=== PATIENT | female | born 1990 | race African-American/Black ===

== ENCOUNTER 2016-10-06 08:28 | Day surgery (SDC) | payer OTHER ==
--- OUTSIDE RECORDS SUMMARY | 2016-10-06 08:32 | XMS REPORT | Continuity of Care Document ---
:1990 Author Organization [facility] ([facility]) Address [address] [place] [address] Phone [phone] Care Team Providers Name Role Phone Marcus Zheng Primary Care Provider [phone] Source Comments This disclosure is being made pursuant to the Care Everywhere program, applicable federal and state laws, and may not contain all informaitonavailable regarding this patient.[facility] ([facility]) Active Allergies and Adverse Reactions No Known Allergies Current Medications No known medications Active Problems Problem Noted Date 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
--- OUTSIDE RECORDS SUMMARY | 2016-10-06 08:32 | XMS REPORT | Continuity of Care Document ---
:1990 Author Organization [facility] [place] [address] Care Team Providers Name Role Phone Marcus Zheng Primary Care Provider [phone] Source Comments This disclosure is being made pursuant to the [employer] program and contain all information available regarding this patient.[facility] Active Allergies and Adverse Reactions No Known Allergies Current Medications Be aware that medications may not be up to date as of this document. Alwaysverify current medications with the patient. Not on file Active Problems Not on file Most Recent Encounters Date Type Specialty Providers Description 09/09/2016 Orders Only Provider, Not In System 08/04/2016 Orders Only Family Medicine Marcus Zheng MD Leg pain, left 08/02/2016 Office Visit Family Marcus Mclean MD Leg pain, left (Primary Dx) Social History Tobacco Use Types Packs/Day Years Used Date Current Every Day Smoker Smokeless Tobacco: Never Used Alcohol Use Drinks/Week oz/Week Comments No Last Filed Vital Signs Vital Sign Reading Time Taken Blood Pressure 120/72 08/02/2016 4:00 PM DRUG DISCOVERY INFORMATICS SPECIALIST Pulse 82 08/02/2016 4:00 PM DRUG DISCOVERY INFORMATICS SPECIALIST Temperature 36.7 C (98 F) 08/02/2016 4:00 PM DRUG DISCOVERY INFORMATICS SPECIALIST Respiratory Rate 16 08/02/2016 4:00 PM DRUG DISCOVERY INFORMATICS SPECIALIST Height 1.638 m (5' 4.5") 08/02/2016 4:00 PM DRUG DISCOVERY INFORMATICS SPECIALIST Weight 77.293 kg (170 lb 6.4 oz) 08/02/2016 4:00 PM DRUG DISCOVERY INFORMATICS SPECIALIST Body Mass Index 28.81 08/02/2016 4:00 PM DRUG DISCOVERY INFORMATICS SPECIALIST Oxygen Saturation 96% 08/02/2016 4:00 PM DRUG DISCOVERY INFORMATICS SPECIALIST Plan of Care Health Maintenance Due Date Last Done Comments HPV Vaccine (9-26YO) (1 of 3 - Female 3 Dose Series) 12/26/2002 Chlamydia Screening 2007 Pneumococcal Medium Risk 19-64 yo (1 of 1 - PPSV23) 12/26/2010 Tetanus/Pertussis (1 - Tdap) 12/26/2010 Pap Smear 12/26/2012 Influenza Immunization (#1) 2016 Results from Last 3 Months US OB GREATER THAN 14 WKS COMPLETE SINGLE FETUS (08/31/2016)US DUPLEX EXTREMITY VEINS BILAT (08/03/2016)
[2016-10-06] MEDS ORDERED: TERBUTALINE SULFATE 1 MG/ML VIAL SC ONE (09:24)
[2016-10-06] MEDS ORDERED: DEXTROSE 5%-LACTATED RINGERS 1,000 ML IV PRN ×2 (09:25→09:48)
[2016-10-06] MEDS ORDERED: RINGERS SOLUTION,LACTATED 1,000 ML IV ONE (09:47)
--- NOTE | 2016-10-06 10:16 | OR ---
Operative Report - Dictated Report Narrative: External Cephalic Version Indication: breech at 37 2/7 weeks Blood type: O positive Procedure: Patient counselled and signed consent for the cephalic version. Risks, benefits and alternatives had discussed with patient. NST was reactive (140s with accels ) prior to the procedure without uterine contractions. Patient emptied her bladder prior to the procedure. One dose of terbutaline 0.25 mg was given subQ prior to the procedure. Bedside ultrasound was performed and confirmed wilma breech with head in the RUQ and spine to the patient's left and placenta at the right lateral position. The abdomen was applied copious amount of ultrasound gel and the buttock was elevated and pushed up toward the maternal left upper quadrant with my right hand and simultaneously the head was guided down with my left hand along the maternal right side to the lower quadrant. heart rate was monitored during the procedure. The cephalic turn was very smooth and took about 50-60 seconds. At the completion of the cephalic version, heart rate was in the 150s. Patient tolerated the procedure well. She did not have much pain or discomfort during the procedure. About 5 minutes later, her blood pressure dropped down to 72/41 and heart rate deceleration was noted from 150s down to 80 for one minute. She was lying flat on her back at the time. She was repositioned to the left lateral. LR bolus was given by iv drip at rate of 999 ml/h. BP gradually returned normal and heart rate returned to baseline of 150s. This hypotensive episode was thought due to her lying flat on her back causing the decreased venous blood return from the vena cava to the heart. She was monitored for 2 hours post procedure. heart rate returned to normal with reactive tracing (150s with accels and no decels). There was no uterine contractions. The patient did not have any discomfort and was discharged home in stable conditions. Return precautions were given to patient. Dr. Ron was present to supervise the external cephalic version. Earl Paez MD
== END 2016-10-06 08:29 | disposition home or self-care (01) ==
LOC: AMB 08:28 → OBCLINIC 08:28
PROVIDERS: ATTEND Obstetrics & Gynecology
PROC: 10S0XZZ Reposition Products of Conception, External Approach (ICD-10-PCS; principal; 2016-10-06)
DX: O32.1XX0 Maternal care for breech presentation, not applicable or unspecified (principal); Z3A.37 37 weeks gestation of pregnancy

== ENCOUNTER 2016-10-23 14:54 | Inpatient (IN) | payer OTHER ==
--- OUTSIDE RECORDS SUMMARY | 2016-10-23 14:58 | XMS REPORT | Continuity of Care Document ---
:1990 Author Organization [facility] [place] [address] Care Team Providers Name Role Phone Marcus Zheng Primary Care Provider [phone] Source Comments This disclosure is being made pursuant to the [employer] program and contain all information available regarding this patient.[facility] Active Allergies and Adverse Reactions No Known [...] Taken Blood Pressure 120/72 08/02/2016 4:00 PM DIRECTOR ON AIR Pulse 82 08/02/2016 4:00 PM DIRECTOR ON AIR Temperature 36.7 C (98 F) 08/02/2016 4:00 PM DIRECTOR ON AIR Respiratory Rate 16 08/02/2016 4:00 PM DIRECTOR ON AIR Height 1.638 m (5' 4.5") 08/02/2016 4:00 PM DIRECTOR ON AIR Weight 77.293 kg (170 lb 6.4 oz) 08/02/2016 4:00 PM DIRECTOR ON AIR Body Mass Index 28.81 08/02/2016 4:00 PM DIRECTOR ON AIR Oxygen Saturation 96% 08/02/2016 4:00 PM DIRECTOR ON AIR Plan of Care Health Maintenance Due Date [...]
--- OUTSIDE RECORDS SUMMARY | 2016-10-23 14:59 | XMS REPORT | Continuity of Care Document ---
:1990 Author Organization [facility] ([facility]) Address [address] [place] [address] Phone [phone] Care Team Providers Name Role Phone Marcus Zheng Primary Care Provider [phone] Source Comments This disclosure is being made pursuant to the Care Everywhere program, applicable federal and state laws, and may not contain all informaitonavailable regarding this patient.[facility] ([facility]) Active Allergies and Adverse Reactions No Known [...]
[2016-10-23] MEDS ORDERED: RINGERS SOLUTION,LACTATED 1,000 ML IV ONE (19:01)
[2016-10-23] MEDS ORDERED: LIDOCAINE HCL 50 ML VIAL PERI PRN (19:01)
[2016-10-23] MEDS ORDERED: OXYTOCIN/DEXTROSE 5%-WATER 30 UNITS/500 ML BAG IV ONE (19:01)
[2016-10-23] MEDS ORDERED: ONDANSETRON HCL/PF 2 MG/ML VIAL IV PRN ×2 (19:01→19:12)
--- NOTE | 2016-10-23 19:01 | PN ---
Progess Note - Interim Narrative: 10/23/16 18:54 Patient uncomfortable with contractions, requesting epidural Vital signs stable. Temp 37.8 Celsius FHT:150 baseline, reassuring Contractions q 2-3 min Cervix: 5/80/-2, SROM at 0930-clear Impression: Intrauterine at 39-5/7 weeks in labor Plan: Fluid bolus started for epidural.
[2016-10-23] MEDS ORDERED: BUPIVACAINE HCL/0.9 % NACL/PF 250 ML EP PRN (19:12)
[2016-10-23] MEDS ORDERED: fentaNYL CITRATE/PF 50 MCG/ML AMPUL IT SCH (19:15)
--- NOTE | 2016-10-23 19:17 | OR ---
Anesthesia Pre Procedure Eval Date of Service: 10/23/16 Pre Procedure Evaluation: Anesthesia Pre Procedure Evaluation Heart Rate:92 Blood Pressure:134/89 Termperature:37 Respiratory Rate:20 SaO2:99 DATE: 10/23/2016 TIME: 1914 INDICATIONS: Active labor, labor pain PAST MEDICAL HISTORY: Primipara patient in active labor, had attempted to labor without epidural however after membranes ruptured is now requesting labor analgesia EXAM: Heart regular; lungs clear ASSESSMENT OF MEDICAL STATUS: Appropriate candidate for labor analgesia PLANNED PROCEDURE: Emanation spinal epidural for labor analgesia Home Medications: HOME MEDICATIONS Acetaminophen [Tylenol] 650 mg PO DAILY 10/23/16 [Last Taken 10/22/16 22:00] Ascorbic Acid [Vitamin C] 500 mg PO DAILY 10/23/16 [Last Taken 10/23/16 11:00] Ferrous Sulfate 325 mg PO DAILY 10/23/16 [Last Taken Unknown] Vit#96/Ferrous Fum/FA [ S] 1 tab PO DAILY 10/23/16 [Last Taken 10/22/16 22:00]
--- NOTE | 2016-10-23 19:39 | OR ---
Anesthesia Procedure Note - Anesthesia Procedure Note Date of Service: 10/23/16 Narrative: 10/23/16 19:37 ANESTHESIA PROCEDURE NOTE Date of Procedure: 10/23/2016 Time of procedure: 1919. Performed by: MARGE Lucio CRNA, MSN Bakery Technician: Umu Martin RN. Preprocedure diagnosis: Active labor, labor pain. Post procedure diagnosis: Same. Procedure: Labor Epidural Placement L3 4. Indications: Labor pain. Findings: See below. Details of the procedure: The patient was placed on the side of the bed in sitting position. The patient was prepped with DuraPrep and draped in a sterile fashion. Lidocaine 1% was infiltrated to the skin and subcutaneous tissues at the level of the L3 4 interspace. The epidural space was identified using a 18-gauge Tuohy needle with [id number] technique. Fentanyl 20 g was given intrathecally the intrathecal needle was then removed and the epidural catheter was threaded approximately 4 cm, the epidural needle was then removed, and after careful aspiration 3 mL of 1.5% lidocaine with 1-200,000 epinephrine was injected without change in maternal heart rate or sensorium. The catheter was then taped in place. EBL: Minimal. Fluids: N/A. Specimen: N/A. Post procedure condition: The patient tolerated the procedure well with good relief. No complications were noted. Thank you for this consultation. Ajay Driscoll CRNA, ARNP, MSN
[2016-10-23] MEDS: DEXTROSE 5%-LACTATED RINGERS 1,000 ML IV PRN ×2 (19:50→23:38)
[2016-10-23] MEDS ORDERED: ceFAZolin SODIUM/DEXTROSE,ISO 2 GM/50 ML BAG IV SCH (23:15)
[2016-10-24] MEDS ORDERED: ACETAMINOPHEN 500 MG TABLET PO STA (04:05)
[2016-10-24] MEDS: DEXTROSE 5%-LACTATED RINGERS 1,000 ML IV PRN (04:10)
--- NOTE | 2016-10-24 04:45 | PN ---
Progess Note - Interim Narrative: 10/24/16 04:40 Patient progressed to complete dilation/-1 station at 0240 Blood pressure is within normal limits temperature 39C Status post 2 g Ancef at 2340 10/23/2016 heart tones 160 baseline with moderate beat to beat variability and occasional variable deceleration Pitocin at 2 mU/m Contractions every 2-3 minutes Impression: 39-6/7 week intrauterine , protracted labor, maternal fever - probable chorioamnionitis Plan: Continue attempt at vaginal delivery, if unsuccessful will proceed with section.
--- NOTE | 2016-10-24 08:35 | OR ---
Operative Report - Dictated Report Narrative: Spontaneous vaginal delivery of viable female at 0758 on 10/24/2016 with Apgars 8 and 8, weighing 3585 g in [id number] position with compound left hand presentation and nuchal cord 2. Cord clamping delayed approximately 1 minute Placenta delivered complete, intact, with three vessel cord Estimated blood loss: 300 mL due to uterine atony which responded to 30 milliunits of Pitocin intravenously and 400 g of Cytotec rectally Lacerations: Bilateral first-degree labial laceration with repair of left laceration and left vaginal sidewall using 4-0 Vicryl Rapide due to small bleeders History for MU Definition: * The number of deliveries resulting in a live the patient experienced prior to current hospitalization * The previous delivery of live twins or any live multiple gestation is considered one live event. *If primagravida or nulliparous is documented select zero for the number of previous live births. Live Events: 0
[2016-10-24] MEDS ORDERED: OXYTOCIN/DEXTROSE 5%-WATER 30 UNITS/500 ML BAG IV ONE (09:04)
[2016-10-24] MEDS ORDERED: oxyCODONE HCL/ACETAMINOPHEN 1 TAB TABLET PO PRN ×2 (09:04)
[2016-10-24] MEDS ORDERED: GLYCERIN/WITCH HAZEL LEAF 40 APPL BOX TP PRN (09:04)
[2016-10-24] MEDS ORDERED: MISOPROSTOL 200 MCG TABLET RC SCH (09:04)
[2016-10-24] MEDS ORDERED: HYDROCORTISONE 30 APPL TUBE TP PRN (09:04)
[2016-10-24] MEDS ORDERED: SENNOSIDES 8.6 MG TABLET PO PRN (09:04)
[2016-10-24] MEDS ORDERED: BENZOCAINE/MENTHOL 81 SPRAY CAN TP PRN (09:04)
[2016-10-24] MEDS ORDERED: BISACODYL 10 MG SUPP.RECT RC PRN (09:04)
[2016-10-24] MEDS: IBUPROFEN 800 MG TABLET PO PRN ×2 (10:20→17:17)
[2016-10-24] MEDS: DOCUSATE SODIUM 100 MG CAPSULE PO SCH ×2 (10:20→21:16)
[2016-10-25] MEDS: IBUPROFEN 800 MG TABLET PO PRN ×3 (00:18→18:49)
[2016-10-25] MEDS: DOCUSATE SODIUM 100 MG CAPSULE PO SCH ×2 (08:39→20:16)
[2016-10-25] MEDS: FERROUS SULFATE 325 MG TABLET PO SCH (08:39)
[2016-10-25] MEDS: PRENATAL VIT#96/FERROUS FUM/FA 1 TAB TABLET PO SCH (08:40)
[2016-10-25] MEDS: ASCORBIC ACID 500 MG TABLET PO SCH (08:40)
--- NOTE | 2016-10-25 17:07 | PN ---
Subjective - Date and Time Seen Date: 10/25/16 Time: 17:07 Objective - Vitals Vitals: Last Vital Signs Temp 36.6 C 10/25/16 13:48 Pulse 86 10/25/16 13:48 Resp 18 10/25/16 13:48 BP 131/82 10/25/16 13:48 Pulse Ox 97 10/25/16 13:48 Patient denies complaints. Lochia wnl Abdomen - soft, nontender Uterus - firm, at umbilicus - 1 No calf tenderness Impression: day #1 - s/p spontaneous vaginal delivery. Plan: Continue routine care Cauti Physician Documentation - Urinary Catheter Management Urethral (Campos) Date of Insertion: 10/23/16 Time of Insertion: 20:10
[2016-10-26] MEDS: IBUPROFEN 800 MG TABLET PO PRN (01:30)
[2016-10-26] MEDS ORDERED: MISOPROSTOL 200 MCG TABLET RC PRN (06:48)
--- NOTE | 2016-10-26 09:20 | PN ---
Subjective - Date and Time Seen Date: 10/26/16 Time: 09:20 Objective - Vitals Vitals: Last Vital Signs Temp 36.8 C 10/26/16 07:05 Pulse 78 10/26/16 07:05 Resp 20 10/26/16 07:05 BP 129/93 10/26/16 07:05 Pulse Ox 97 10/26/16 07:05 Patient denies complaints. Lochia wnl Abdomen - soft, nontender Uterus - firm, at umbilicus - 2 No calf tenderness Impression: day #2 - s/p spontaneous vaginal delivery. Plan: Routine discharge instructions. Follow-up in the office in 2 weeks for blood pressure check. Cauti Physician Documentation - Urinary Catheter Management Urethral (Campos) Date of Insertion: 10/23/16 Time of Insertion: 20:10
[2016-10-26] MEDS: PRENATAL VIT#96/FERROUS FUM/FA 1 TAB TABLET PO SCH (10:19)
[2016-10-26] MEDS: ASCORBIC ACID 500 MG TABLET PO SCH (10:20)
[2016-10-26] MEDS: FERROUS SULFATE 325 MG TABLET PO SCH (10:20)
[2016-10-26] MEDS: DOCUSATE SODIUM 100 MG CAPSULE PO SCH (10:20)
[2016-10-26 19:40] VITALS: BP 130/90
== END 2016-10-26 18:30 | disposition home or self-care (01) | DRG 774 ==
LOC: OB 14:54 → MS 10-26 17:05
PROVIDERS: ADMIT Obstetrics & Gynecology; ATTEND Obstetrics & Gynecology
PROC: 10E0XZZ Delivery of Products of Conception, External Approach (ICD-10-PCS; principal; 2016-10-24)
PROC: 4A1HXCZ Monitoring of Products of Conception, Cardiac Rate, External Approach (ICD-10-PCS; 2016-10-24)
PROC: 0HQ9XZZ Repair Perineum Skin, External Approach (ICD-10-PCS; 2016-10-24)
PROC: 3E0S3CZ (ICD-10-PCS; 2016-10-24)
DX: O69.81X0 Labor and delivery complicated by cord around neck, without compression, not applicable or unspecified (principal); O72.1 Other immediate postpartum hemorrhage; O41.1230 Chorioamnionitis, third trimester, not applicable or unspecified; O70.0 First degree perineal laceration during delivery; O99.314 Alcohol use complicating childbirth; F17.210 Nicotine dependence, cigarettes, uncomplicated; Z3A.40 40 weeks gestation of pregnancy; Z37.0 Single live birth